=== PATIENT | female | born 1960 | race Caucasian/White ===

== ENCOUNTER → 2023-07-02 12:49 | Outpatient (REF) | payer OTHER, SELFPAY | LOC: WDC 12:49 | PROVIDERS: ATTENDING PHYSICIAN Family Medicine | DX: Z12.31 Encounter for screening mammogram for malignant neoplasm of breast (principal) | CPT/HCPCS: 77063; 77067 ==

== ENCOUNTER → 2023-07-11 11:01 | Outpatient (REF) | payer OTHER, SELFPAY | LOC: RAD 11:01 | PROVIDERS: ATTENDING PHYSICIAN Family Medicine | DX: Z87.891 Personal history of nicotine dependence (principal); R05.1 Acute cough | CPT/HCPCS: 71271 ==

== ENCOUNTER → 2023-10-10 18:28 | Outpatient (REF) | payer OTHER, SELFPAY | LOC: PAVMRI 18:28 | PROVIDERS: ATTENDING PHYSICIAN Orthopaedic Surgery; FAMILY PHYSICIAN Family Medicine | DX: M75.31 Calcific tendinitis of right shoulder (principal); M25.511 Pain in right shoulder | CPT/HCPCS: 73221 ==

== ENCOUNTER → 2024-07-02 14:02 | Outpatient (REF) | payer OTHER, SELFPAY | LOC: WDC 14:02 | PROVIDERS: ATTENDING PHYSICIAN Nurse Practitioner Family; FAMILY PHYSICIAN Nurse Practitioner | DX: Z12.31 Encounter for screening mammogram for malignant neoplasm of breast (principal) | CPT/HCPCS: 77063; 77067 ==

== ENCOUNTER → 2024-11-20 12:07 | Outpatient (REF) | payer OTHER, SELFPAY | LOC: RAD 12:07 | PROVIDERS: ATTENDING PHYSICIAN Nurse Practitioner | DX: Z87.891 Personal history of nicotine dependence (principal); R91.1 Solitary pulmonary nodule | CPT/HCPCS: 71271 ==

== ENCOUNTER 2025-01-05 06:23 | Day surgery (SDC) | payer OTHER, SELFPAY | END 2025-01-05 15:33 | disposition home or self-care (01) | LOC: GI 06:23 | PROVIDERS: ATTENDING PHYSICIAN Internal Medicine | DX: Z12.11 Encounter for screening for malignant neoplasm of colon (principal); D12.0 Benign neoplasm of cecum; K63.5 Polyp of colon; K57.30 Diverticulosis of large intestine without perforation or abscess without bleeding; K62.1 Rectal polyp; K64.9 Unspecified hemorrhoids; Z86.0101 Personal history of adenomatous and serrated colon polyps; Z72.0 Tobacco use | CPT/HCPCS: 45385; 45380; 88305 ==